=== PATIENT | male | born 1990 | race Caucasian/White ===

== ENCOUNTER 2016-12-28 12:37 | Emergency (ER) | payer SELFPAY ==
[2016-12-28 12:49] VITALS: BP 133/66
--- NOTE | 2016-12-28 13:10 | UC ---
Laceration HPI - HPI Summary HPI Summary: Pt was using a utility knife to cut styrofoam and slipped and punctured the skin on his right jaw line. Bleeding stopped within minutes. Tdap was last year per pt. No fever, chills, numbness, tingling, or other pain - History Of Current Complaint Chief Complaint: UCLowerExtremity Stated Complaint: FACIAL LAC Time Seen by Provider: 12/28/16 13:10 Hx Obtained From: Patient Laceration Location: Face Mechanism Of Injury: Sharp Trauma Onset/Duration: Sudden Onset Severity: Mild Pain Intensity: 4 Pain Scale Used: 0-10 Numeric Facial Trauma: 1 - 2mm superficial lac - Allergies/Home Medications Allergies/Adverse Reactions: Allergies Allergy/AdvReac Type Severity Reaction Status Date / Time No Known Allergies Allergy Verified 12/28/16 12:50 PMH/Surg Hx/FS Hx/Imm Hx Previously Healthy: Yes - Surgical History Surgical History: Yes Surgery Procedure, Year, and Place: LEFT SHOULDER SURGERY HX - Family History Known Family History: Positive: None - Social History Alcohol Use: Weekly Substance Use Type: None Smoking Status (MU): Never Smoked Tobacco - Immunization History Most Recent Tetanus Shot: 2015 Review of Systems Constitutional: Negative Skin: Other - Laceration to right jaw line ENT: Negative Respiratory: Negative Cardiovascular: Negative Is Patient Immunocompromised?: No All Other Systems Reviewed And Are Negative: Yes Physical Exam Triage Information Reviewed: Yes Appearance: Well-Appearing, Well-Nourished Vital Signs: Initial Vital Signs Temp 98.3 F 12/28/16 12:44 Pulse 64 12/28/16 12:44 Resp 15 12/28/16 12:44 BP 133/66 12/28/16 12:44 Pulse Ox 100 12/28/16 12:44 Vital Signs Reviewed: Yes ENT: Positive: Normal ENT inspection, Hearing grossly normal, Pharynx normal, Pharyngeal erythema Dental Exam: Normal Dental: Negative: Dental Fracture @ Neck: Positive: Supple, Nontender, No Lymphadenopathy Respiratory: Positive: Chest non-tender, Lungs clear, Normal breath sounds, No respiratory distress Cardiovascular: Positive: RRR, No Murmur Skin: Positive: Other - 2mm superficial laceration to skin on right jaw line. No bleeding. No FB within wound. Laceration Course/Dx - Course/Dx Course Of Treatment: Tdap is up to date. Wound was cleaned with sterile 4x4 and sterile saline. Recommended putting in 1 or 2 sutures, but steri-strips or adhesive would be acceptable. Pt opted to have steri-strips applied and declined sutures. Two steri strips were applied. - Differential Dx - Laceration/Wound Differental Diagnoses: Abrasion, Laceration Provider Diagnoses: 2mm Laceration to face Discharge - Discharge Plan Condition: Stable Disposition: HOME Patient Education Materials: Facial Laceration (ED) Additional Instructions: Keep area clean and dry. If the wound opens further, becomes red, swollen, or painful - please call our office or go to ED. If you develop a fever, SOB, chest pain, new or worsening symptoms - please call our office or go to ED
== END 2016-12-28 13:35 | disposition home or self-care (01) ==
LOC: UCEAST 12:37
DX: S01.81XA Laceration without foreign body of other part of head, initial encounter (principal); W26.0XXA Contact with knife, initial encounter; Y92.9 Unspecified place or not applicable
CPT/HCPCS: 99201; G0463

== ENCOUNTER 2018-11-16 10:03 | Emergency (ER) | payer SELFPAY ==
[2018-11-16 10:18] VITALS: BP 137/89
--- NOTE | 2018-11-16 10:26 | UC ---
Laceration HPI - HPI Summary HPI Summary: 28-year-old male who lacerated the dorsal portion of his right thumb at work on a piece of metal. His last tetanus was 2 years ago. - History Of Current Complaint Chief Complaint: UCUpperExtremity Stated Complaint: finger LACERATION Hx Obtained From: Patient Laceration Location: Finger - Right Thumb Mechanism Of Injury: Sharp Trauma Onset/Duration: Sudden Onset Severity: Moderate Pain Intensity: 6 Aggravating Factors: Position Related History: Occupational Injury, Dominant Hand Right - Allergies/Home Medications Allergies/Adverse Reactions: Allergies Allergy/AdvReac Type Severity Reaction Status Date / Time No Known Allergies Allergy Verified 11/16/18 10:19 Home Medications: Home Medications NK [No Home Medications Reported] 11/16/18 [History Confirmed 11/16/18] PMH/Surg Hx/FS Hx/Imm Hx Previously Healthy: Yes - Surgical History Surgical History: Yes Surgery Procedure, Year, and Place: LEFT SHOULDER SURGERY HX - Family History Known Family History: Positive: None - Social History Occupation: Employed Full-time Alcohol Use: Daily Alcohol Amount: 2,3 beers Substance Use Type: Marijuana Substance Use Comment - Amount & Last Used: occasionally Smoking Status (MU): Heavy Every Day Tobacco Smoker Household Exposure Type: Cigarettes - Immunization History Most Recent Tetanus Shot: 2016 Review of Systems All Other Systems Reviewed And Are Negative: Yes Skin: Positive: Other - Laceration dorsal aspect right thumb. Bleeding is controlled. Is Patient Immunocompromised?: No Physical Exam Triage Information Reviewed: Yes Appearance: Well-Appearing, No Pain Distress, Well-Nourished Vital Signs: Initial Vital Signs Temp 99 F 11/16/18 10:06 Pulse 91 11/16/18 10:06 Resp 16 11/16/18 10:06 BP 137/89 11/16/18 10:06 Pulse Ox 100 11/16/18 10:06 Vital Signs Reviewed: Yes Musculoskeletal: Positive: Strength Intact, ROM Intact, Other: - Good peripheral pulses, neuro sensation, and capillary refill. Good finger strength with flexion and extension against resistance. Full range of motion. Patient has an approximately 1.5 cm laceration across the dorsal aspect of his right thumb. Bleeding is controlled. Neurological Exam: Normal Psychological Exam: Normal Skin: Positive: Other - See above notes Laceration Repair - Laceration Repair 1 Description: Linear Laceration Size After Repair: Length (cm) - 1.5 cm across the dorsal aspect of his right thumb. Modified For Repair: No Type Injection: Local Anesthesia Used: 1.0% Lido Cleansing Completed Via Routine Prep: Yes Irrigation With Pressure Irrigation Device: Yes Closure Material: Sutures Suture Of: SQ Suture Type: Prolene - Sutures placed numbered 4 with 40 prolene. Patient tolerated procedure well. Laceration Course/Dx - Course/Dx Course Of Treatment: A dry sterile bulky dressing was applied. Tetanus is up-to-date. No work until Monday. He is to follow-up with Dr. Gracia in 10 days for suture removal or sooner if any signs of infection which were reviewed with the patient. - Diagnosis Provider Diagnosis: Laceration of thumb Discharge ED - Sign-Out/Discharge Documenting (check all that apply): Patient Departure All imaging exams completed and their final reports reviewed: No Studies - Discharge Plan Condition: Good Disposition: HOME Patient Education Materials: Care For Your Stitches (DC) Forms: *Work Release Referrals: eTddy Gracia MD [Primary Care Provider] - Additional Instructions: Elevate and apply pressure if the area starts bleeding. Keep the dressing on for 24 hours. Watch for signs of infection such as hot, red, tender, pus drainage, red streaks up your thumb or hand. Follow-up sooner if any concerns. Make an appointment with your primary care provider for suture removal in 10 days. - Billing Disposition and Condition Condition: GOOD Disposition: Home
[2018-11-16] MEDS ORDERED: Lidocaine 1% MPF ** 5 ML VIAL INJ ONE (10:29)
== END 2018-11-16 12:14 | disposition home or self-care (01) ==
LOC: UCEAST 10:03
DX: S61.011A Laceration without foreign body of right thumb without damage to nail, initial encounter (principal); W26.9XXA Contact with unspecified sharp object(s), initial encounter; Y93.9 Activity, unspecified; Y92.89 Other specified places as the place of occurrence of the external cause; Y99.0 Civilian activity done for income or pay; F17.210 Nicotine dependence, cigarettes, uncomplicated
CPT/HCPCS: 12001; 99211; G0463